=== PATIENT | female | born 1950 | race Caucasian/White ===

== ENCOUNTER → 2021-06-10 | Outpatient (CLI) | payer MEDICARE, OTHER, SELFPAY ==
--- NOTE | 2021-06-10 | IMM_PTH ---
PATIENT: LURDES CAMPBELL LOC: [facility] U#:[id number] AGE/SX: 70/F ROOM: RE06/10/[address]: Dr. Sara Jacobs MD : 1950 BED: DIS: 06/10/2021 SPEC #: [id number] RECD: 06/12/21 11:01 STATUS: BRITTNEY REQ #: [id number] ROMEO: 06/10/21 00:[address]: Sara Jacobs DEPT: IMMUNOHISTOCHEMISTRY RECD BY: Yudith Jacob ENTERED: 06/12/21 11:03 SP TYPE: IMMUNO OTHR DR: Dr. Lux Garcia MD Tissues: A - Left breast, NOS B - Left breast, NOS Procedures: CALPONIN-1 (add) CK5-6 (add) CK8 (add) PIERRE-2 (add) E-CAD (add) HER2 JERROD (add) KI-67 (add) MAMM (add) P53 (add) MS (add) Pankeratin (initial) GATA3 (add) P40 (add) ER (initial) PHYSICIAN & INSTITUTION [address] [address] SPECIMEN INFORMATION: Tissue Source: A ? Left breast mass 9 o?clock, B - Left breast mass 9 o?clock Clinical Info: Left breast mass Specimen Number: [id number] A & B CPT code: 03964 x2, 06374 x9, 72957 x3 METHODOLOGY: Deparaffinized sections of prefer/formalin-fixed tissue or PAP/DQ stained slides are incubated with monoclonal/polyclonal antibodies/oligonucleotide probes. Localization is made via biotin free immunoperoxidase method. Appropriate controls are performed and reacted as expected. Results on target cell population are indicated in the following table: RESULTS: ANTIBODY / CLONE RESULT Block A P53 (DO-7) positive, 2%, dim Ki-67 (30-9) positive, 15% CK8 (20jiuqN23) positive CK5-6 (D5 & 1684) negative Calponin-1 (JQ140Q) negative P40 (BC28) negative E-Cad (ECH-6) positive PIERRE-2 (SP21) positive MORPHOMETRIC ANALYSIS ER (clone 6F11) >95%, strong MS (clone 16/1E2) 90%, strong Her-2Neu (clone CB11) negative Block B AE1-3 (AE1/AE3/PCK26) positive GATA3 (L50-823) positive Mammaglobin (31A5) positive The prognostic test for HER2 is performed on formalin-fixed paraffin embedded tissue. A 3+ (positive) staining pattern is defined as intense, homogeneous, complete, circumferential membranous staining in >10% of contiguous tumor cells. A similar weak (2+) staining pattern is interpreted as equivocal. KEL follow-up testing is recommended for all equivocal cases. Positivity/negativity for ER/MS is reported if > or < 1% of the tumor cells are immuno- reactive, respectively. The ASCO/CAP criteria is used for scoring. Reference: Journal of Clinical Oncology, 2013; 31:4087-0630 & 2010; 16:7747-1896. Duration of fixation: 28.5 Hrs; Sample Adequate: Yes. These assays have not been validated on decalcified tissues. Results should be interpreted with caution given the likelihood of false negativity on decalcified specimens. These tests were developed and their performance characteristics determined by [facility]. They may not have been cleared or approved by the U.S. Food and Drug Administration. The FDA has determined that such clearance or approval is not necessary. The above immunohistochemical/dualISH markers are ordered and reviewed by the Pathologist. INTERPRETATION: A. Left breast mass 9 o?clock, biopsy: Invasive ductal carcinoma, nuclear grade 2. Positive for estrogen receptors (favorable prognostic indicator). Positive for progesterone receptors (favorable prognostic indicator). Negative for overexpression of EXN1fbw. B. Left breast mass 9 o?clock, biopsy: Invasive ductal carcinoma, nuclear grade 2. AM:binh 06/13/2021
--- NOTE | 2021-06-10 | BRBX_PTH ---
PATIENT: LURDES CAMPBELL [facility] U#:[id number] AGE/SX: 70/F ROOM: RE06/10/[address]: Dr. Sara Jacobs MD : 1950 BED: DIS: 06/10/2021 SPEC #: [id number] RECD: 06/10/21 16:06 STATUS: BRITTNEY REEmmy #: [id number] ROMEO: 06/10/21 00:[address]: Sara Jacobs DEPT: SURGICAL PATHOLOGY RECD BY: Marion Zavala ENTERED: 06/11/21 08:33 SP TYPE: BREAST BX OTHR DR: Dr. Lux Garcia MD Tissues: A - Left breast, NOS B - Left breast, NOS Procedures: Surgery Specimen Level IV HEADER OPERATION: Left breast biopsy PRE-OP DIAGNOSIS: Left breast mass TISSUE SUBMITTED: A ? Left breast mass 9 o?clock, 3 cm from nipple, B - Left breast mass 9 o?clock, 2.5 cm from nipple MICROSCOPIC DIAGNOSIS A. Left breast mass at 9 o?clock, 3 cm from nipple, core biopsy: Invasive ductal carcinoma with the following characteristics: Maximal length ? 5.2 millimeters Nuclear grade ? 2/3 See comment. B. Left breast mass at 9 o?clock, 2.5 cm from nipple, core biopsy: Invasive ductal carcinoma with the following characteristics: Maximal length ? 5 millimeters Nuclear grade ? 2/3 See comment. AM:binh 06/12/2021 COMMENT A & B. Immunohistochemistry ([id number]) supports the above diagnosis. MICROSCOPIC DESCRIPTION Slides are reviewed. GROSS DESCRIPTION A - Received in fixative is one container labeled with the patient's name and designated left breast mass 9 o'clock. The specimen consists of three cores of zendejas tissue. Each core has an average length of 1 cm and maximal diameter of 0.2 cm. The specimen is totally submitted in one cassette. B - Received in fixative is one container labeled with the patient's name and designated left breast mass 9 o'clock. The specimen consists of multiple irregular fragments of yellow-zendejas soft tissue that in aggregate measure 1.5 x 0.2 x 0.1 cm. The specimen is totally submitted in one cassette. / AM:binh 06/11/21 TC:0 CPT: 72946 x2
== END | disposition home or self-care (01) ==
LOC: LABSPEC 16:18
PROVIDERS: PCP Family Medicine; Referring Provider Surgery; Visit Provider Surgery
DX: C50.812 Malignant neoplasm of overlapping sites of left female breast (principal)
CPT/HCPCS: 88305; 88341; 88342

== ENCOUNTER 2021-06-26 10:17 | Outpatient (CLI) | payer MEDICARE, OTHER, SELFPAY ==
--- NOTE | 2021-06-26 10:20 | MRI_ITS ---
STUDY: BILATERAL BREAST MR WITHOUT AND WITH CONTRAST REASON FOR EXAM: Female, 70 years old. Newly diagnosed left breast cancer. TECHNIQUE: Multi-sequence multi-echo imaging of both breasts was performed with a dedicated breast coil. T1-weighted and T2-weighted images were performed before the administration of contrast. T1-weighted images were also performed after the administration of 15 mL of Dotarem contrast without complications. COMPARISON: Left breast ultrasound-guided images dated 06/10/2021, left breast ultrasound dated 05/31/2021, bilateral screening mammogram and left breast diagnostic images dated 05/31/2021. FINDINGS: RIGHT BREAST: The breast tissue is fatty with minimal background enhancement. There are no abnormal enhancing masses or areas of non-mass enhancement in the right breast. LEFT BREAST: The breast tissue is fatty with minimal background enhancement. At the 9 o''clock position of the left breast corresponding to the mammographic and ultrasonographic findings there is an irregular enhancing mass measuring 17 mm x 6 mm x 8 mm. Multiple small lymph nodes in both axillae with no abnormal lymph nodes. There is no abnormality in the visualized regions of the chest or liver. MRI/Breast Bilateral W/O and W IMPRESSION: 17 mm x 6 mm x 8 mm irregular enhancing mass at the 9 o''clock position of the left breast corresponding to the mammographic and ultrasonographic findings. No other abnormality. CATEGORY: BIRADS Category 6: Known Biopsy-Proven Malignancy - Appropriate Action Should Be Taken. A letter regarding these results will be sent to the patient by the facility within 30 days. Electronically Signed: Darnell Lane MD at 12:24 EST , Service support ,
[2021-06-26 10:46] LABS: CREATININE FINGERSTICK 0.7 mg/dL (0.55-1.02); EGFR FINGERSTICK > 60.0000 mL/min (>60)
== END 2021-06-26 23:59 | disposition short-term general hospital (02) ==
LOC: MRI 10:20
PROVIDERS: PCP Family Medicine; Referring Provider Surgery; Visit Provider Surgery
DX: C50.912 Malignant neoplasm of unspecified site of left female breast (principal)
CPT/HCPCS: 77049; C8908

== ENCOUNTER 2021-07-04 07:45 | Day surgery (SDC) | payer MEDICARE, OTHER, SELFPAY ==
--- NOTE | 2021-07-04 | IMM_PTH ---
PATIENT: LURDES CAMPBELL LOC: [facility] [place] U#:[id number] AGE/SX: 70/F ROOM: RE07/04/[address]: Dr. Sara Jacobs MD : 1950 BED: DIS: 07/04/2021 SPEC #: [id number] RECD: 07/09/21 12:52 STATUS: BRITTNEY REQ #: [id number] ROMEO: 07/04/21 00:[address]: Sara Jacobs DEPT: IMMUNOHISTOCHEMISTRY RECD BY: Yudith Jacob ENTERED: 07/09/21 12:53 SP TYPE: IMMUNO OTHR DR: Dr. Lux Garcia MD Tissues: A - Axillary lymph node, NOS Procedures: CK7 (add) Pankeratin (initial) Pankeratin (add) PHYSICIAN & INSTITUTION [place] [address] SPECIMEN INFORMATION: Tissue Source: A ? Axillary sentinel lymph nodes left breast Clinical Info: Left breast invasive ductal carcinoma Specimen Number: [id number] A1 & A2 CPT code: 25762, 16575 x3 METHODOLOGY: Deparaffinized sections of prefer/formalin-fixed tissue or PAP/DQ stained slides are incubated with monoclonal/polyclonal antibodies/oligonucleotide probes. Localization is made via biotin free immunoperoxidase method. Appropriate controls are performed and reacted as expected. Results on target cell population are indicated in the following table: RESULTS: ANTIBODY / CLONE RESULT Block A1 AE1-3 (AE1/AE3/PCK26) negative CK7 (OV-TL12/30) negative Block A2 AE1-3 (AE1/AE3/PCK26) negative CK7 (OV-TL12/30) negative These tests were developed and their performance characteristics determined by [facility]. They may not have been cleared or approved by the U.S. Food and Drug Administration. The FDA has determined that such clearance or approval is not necessary. The above immunohistochemical/dualISH markers are ordered and reviewed by the Pathologist. INTERPRETATION: A. Axillary sentinel lymph nodes left breast, biopsy: Two out of two lymph nodes, negative for metastatic carcinoma. IZAIAH:binh 07/10/2021
--- NOTE | 2021-07-04 | AXNB_PTH ---
PATIENT: LURDES CAMPBELL [place] [facility] [place][id number] AGE/SX: 70/F ROOM: RE07/04/[address]: Dr. Sara Jacobs MD : 1950 BED: DIS: 07/04/2021 SPEC #: [id number] RECD: 07/04/21 12:29 STATUS: BRITTNEY REEmmy #: [id number] ROMEO: 07/04/21 00:[address]: Sara Jacobs DEPT: SURGICAL PATHOLOGY RECD BY: Yudith Jacob ENTERED: 07/04/21 12:49 SP TYPE: AX NODE BX OTHR DR: Dr. Lux Garcia MD Tissues: A - Axillary lymph node, NOS B - Left breast, NOS Procedures: Frozen Section (charge) Frozen Section Add'l ([facility]) Surgery Specimen Level V HEADER OPERATION: Left breast ultrasound-guided wire localized lumpectomy, sentinel lymph node biopsy PRE-OP DIAGNOSIS: Left invasive ductal breast carcinoma TISSUE SUBMITTED: A ? Adams lymph node left breast, FS at 1224, B ? Left lumpectomy, long suture ? lateral, short suture - superior FROZEN SECTION DIAGNOSIS A. Left sentinel lymph nodes, biopsy: Two out of two lymph nodes, negative for metastatic carcinoma. :binh 07/04/2021 MICROSCOPIC DIAGNOSIS A. Left axillary sentinel lymph nodes, biopsy: Two out of two lymph nodes, negative for metastatic carcinoma. See comment. B. Left breast, wire-localized lumpectomy: Invasive ductal carcinoma. Ductal carcinoma in situ. See cancer summary in the comment section. IZAIAH:binh 07/09/2021 COMMENT A. The lymph nodes are negative for metastatic carcinoma on multiple H & E levels and immunohisto-chemical stains for cytokeratins ([id number]). B. BREAST CANCER SUMMARY Procedure - excision (lumpectomy) with needle localization Specimen laterality ? left Invasive tumor: Tumor site ? left breast 9 o?clock, 3 cm from nipple and left breast 9 o?clock, 2.5 cm from nipple Tumor size ? 0.9 x 0.5 x 0.5 cm Histologic type ? invasive ductal carcinoma, not otherwise specified Histologic grade (Broadview grade): Glandular/tubular differentiation score - 3 Nuclear pleomorphism score - 3 Mitotic count score - 2 Overall grade ? grade 3 (score of 8) Tumor focality ? single focus of invasive carcinoma (bilobated) Ductal carcinoma in situ ? present Negative for extensive intraductal component (EIC). Ductal carcinoma in situ comprise about 20% of total volume and present adjacent and away from the invasive tumor. Number of blocks with DCIS ? 3 Number of blocks examined ? 12 Architectural pattern ? comedo, cribriform and solid Nuclear grade ? nuclear grade 3 (high) Necrosis ? present, central (expansive ?comedo? necrosis) Lobular carcinoma in situ ? not identified Tumor extension: Skin ? not present Nipple ? not applicable Skeletal muscle ? not present Margins - Invasive carcinoma and ductal carcinoma in situ is 0.2 cm away from the closest inferior margin. Regional lymph nodes: Total number of lymph nodes examined ? 2 Number of sentinel lymph nodes examined - 2 Number of lymph nodes with macrometastases, micrometastases or isolated tumor cells - 0 Treatment effect ? no known presurgical therapy. Lymphvascular invasion ? not identified Dermal lymphvascular invasion ? not applicable Distant metastasis - not applicable Additional Pathologic Findings ? fibrocystic changes and mild intraductal hyperplasia without atypia. - Changes consistent with previous biopsy site. Ancillary Studies: Previously performed on same tumor ([id number] / [id number]) ER: positive (>95%, strong) OH: positive (90%, strong) Ypg6vut: negative Microcalcifications ? present in invasive carcinoma. Clinical History - Please make reference to previous specimen ([id number]) left breast mass at 9 o?clock, 3 cm from nipple, core biopsy with diagnosis of ?invasive ductal carcinoma? and left breast mass at 9 o?clock, 2.5 cm from nipple, core biopsy with diagnosis of ?invasive ductal carcinoma.? PATHOLOGIC STAGE: pT1b pN0(sn) pMx The above summary is in compliance with [employer] [place] (CAP) Cancer Protocols Checklist and [place] Joint Committee on Cancer (AJCC), Staging Manual, 8th Ed. Case has been reviewed in consultation with Dr. Hernandez who concurs with the above diagnosis. IDC:AM MICROSCOPIC DESCRIPTION Slides are reviewed. GROSS DESCRIPTION A - Received fresh for frozen section diagnosis labeled with the patient's name is a specimen designated sentinel lymph node left breast. The specimen consists of two pieces of zendejas-yellow fibroadipose tissue containing nodule measuring 2.5 x 1.5 x 1 cm and 1 x 1 x 0.4 cm. Two nodules measuring 0.8 and 1.5 cm in greatest dimension are identified. The entire specimen is submitted for frozen section diagnosis in two cassettes with each cassette containing one nodule. B - Received fresh for intraoperative consultation labeled with the patient's name is a specimen designated left breast lumpectomy. The specimen consists of a piece of fibroadipose tissue with needle localization measuring 4.5 x 3.5 x 2.5 cm. The specimen is oriented as follows: long suture - lateral, short suture - superior. The specimen is inked as follows: anterior - yellow, posterior - black, superior - blue, inferior - green, medial - red and lateral - orange. Serial sections reveal a zendejas, indurated mass measuring 0.9 x 0.5 x 0.5 cm. This mass is 0.5 cm away from the closest inferior margin. This information is conveyed to the surgeon intraoperatively. Sections of the rest of the specimen reveal zendejas-yellow adipose cut surfaces mixed with scant fibrous areas. The entire specimen is submitted in 12 cassettes as follows: 1 - perpendicular medial and lateral margins, 2 - perpendicular superior, inferior and posterior margin, 3 & 4 - entire tumor with closest anterior margin, 5 & 6 - payable representative sections adjacent to the tumor, 7-12 - rest of the specimen. Sections are submitted after additional fixation. / IZAIAH:binh 07/05/2021 TC:0 CPT: 92000 x2, 47778, 77395, 76113 ADDENDUM ADDENDUM ADDENDUM ADDENDUM ADDENDUM ADDENDUM ADDENDUM ADDENDUM 10/08/2021 15:22 ADDENDUM 10/08/2021 15:22 ADDENDUM 10/08/2021 15:22 ADDENDUM 10/08/2021 15:22 ADDENDUM 10/08/2021 15:22 An order for Oncotype testing was received from Dr. Montes. This necessitated case review, block and slide selection by pathologist at [facility]. Breast Cancer Recurrence Score = 18 Results of the complete Oncotype testing ([employer] report) are viewable in EMR under: Reports - Pathology - Lab Pathology Report, Scanned.
[2021-07-04 08:20] VITALS: BP 153/85; PULSE 80; RESP 16; TEMP 36.4; O2SAT 98; BMI 33.8
--- NOTE | 2021-07-04 08:30 | NM_ITS ---
PROCEDURE: NUCLEAR MEDICINE Injection [place] Node - LEFT breast(s). REASON FOR EXAM: Female, 70 years old. Left breast cancer. TECHNIQUE: [place] node localization using radionuclide methods of the LEFT breast(s) was performed following subcutaneous administration of 1.1 mCi of of sulfur colloid Tc-99m. FINDINGS: 1.1 mCi of technetium labeled sulfur colloid was injected subcutaneously in 4 equal aliquots in the left periareolar region. NM/Lymph Node Injection Only IMPRESSION: Subcutaneous injection of 1.1 mCi of technetium labeled sulfur colloid in 4 equal clots in the left periareolar region. Electronically Signed: Paulo Anderson MD at 8:41 EST , Service support ,
--- NOTE | 2021-07-04 08:33 | PCM.HP.BLA ---
History and Physical Date of Admission: 07/04/21 Date of Service: 06/18/21 MR#:[id number]:[id number]: LURDES CAMPBELLRep #:[id number] Provider:Chevy Singh/Sex: 70/F [facility] Reasons: Breast Cancer Chief Complaint: birads 5 left breast Allergies Penicillins Allergy (Verified 06/10/21 15:43) unknown [facility] Medical History (Updated 06/18/21 @ 10:[address] Sara Jacobs MD) Arthritis Hypothyroidism Invasive ductal carcinoma of left breast Rosacea Surgical History (Updated 06/10/21 @ 15:42 by Marine Thursday) H/O tubal ligation History of colonoscopy History of knee surgery History of tonsillectomy Hx of appendectomy S/P cataract surgery S/P cholecystectomy S/P hysterectomy Family History (Updated 06/10/21 @ 15:39 by Marine Thursday) Mother Arthritis Breast cancer Colon cancer Cancer non-Hodgkin's lymphoma Hypertension High cholesterol Thyroid disorder Father Cancer lung CA, skin CA-melanoma Heart disease Grandmother Asthma Social History (Updated 06/10/21 @ 15:41 by Marine Thursday) Smoking Status: Never smoker alcohol intake: current details: a glass on very special occasions substance use type: does not use HPI HPI HPI: LURDES CAMPBELL, is a 70 F who presents to the office today for discussion of left breast biopsy pathology along with her . Pathology did show invasive ductal carcinoma left breast and 9:00 3 cm from the nipple and at 9:00 2.5 cm from nipple. Grade 2/3?ER/NE positive HER-2 negative. Patient's initial ultrasound did show a BI-RADS 5 at the 3 o'clock position with a small area at the 2.5 cm position. There is a little bit of discrepancy as both areas had 5 mm tissue however the lesion at 2.5 cm was not as suspicious as the one at 3 cm and it also was only about 3 mm in size. Patient is scheduled for breast MRI on 06/26 due to this. Exam Const General: cooperative, healthy appearing, comfortable and no acute distress Neck Neck: normal visual inspection Chest Other: Left breast biopsy site healing well ecchymosis resolving, lesion still seen well with ultrasound Resp Effort & Inspection: normal respiratory effort Cardio Rate: regular rate GI Inspection: non-distended Palpation: soft Skin General: no rashes or lesions noted Neuro General: patient oriented x3 Psych Affect: normal affect COVID (Procedure Consent) Procedure Criteria Procedure Criteria: Yes Elective The surgeon/proceduralist and patient have discussed in detail the risk of exposure to and/or potential harm posed by the COVID-19 virus with having a surgery/procedure at this time versus the risk of delaying the surgery/procedure. It is not possible to know either the risk of delaying the surgery or procedure or chance of getting an infection with perfect accuracy, but a joint decision was made between the patient and the surgeon/proceduralist to proceed at this time with the scheduled surgery/procedure as indicated on the consent form. Assessment and Plan Assessment and Plan (1) Invasive ductal carcinoma of left breast: Status: Acute Plan: Patient scheduled for an MRI in 06/26?these results are also factor into options for surgery, which patient and are aware. I have given the patient options for initial surgical treatment. Options are the following: lumpectomy followed by radiation therapy vs. mastectomy vs. mastectomy followed by immediate reconstruction. I have described the procedures to the patient. I have described the advantages and disadvantages of the options, but I have told the patient that among the options, the survival rate for breast cancer is the same. I have told the patient that with all the surgeries that a sentinel lymph node biopsy is required. I have described the procedure of sentinel lymph node biopsy to the patient. I have told the patient that if the biopsy is positive for metastatic disease, then a full axillary lymph node dissection is required. I have told the patient that adjuvant chemotherapy will be required should the lymph nodes reveal metastatic disease. Also, a full lymph node dissection will increase the risk for lymphedema, especially if there are 4 or more lymph nodes positive for metastatic disease and radiation to the axilla is also required. I have told the patient the risks of surgery, including but not limited to: infection, bleeding, scar tissue, seroma and persistent seroma, lymph leak, injury to any blood vessels, injury to any nerves (particularly the long thoracic, the thoracodorsal, and the second intercostal brachial and the resultant sequelae), lymphedema, cosmetic deformity, dysesthesias, wound infections, further surgery (especially if margins are not clear), complications of anesthesia, etc. the patient understands. The patient will think about the options and discuss it further with the family. Patient was on appointment with Dr. Downey radiation oncology as well. We will be in touch with the patient after her appointment with Dr. Downey as well as the MRI. I have answered all the patient?s questions at this point to her satisfaction and she has no further questions. Greater than 50% of direct patient contact was spent in counseling or coordination of care. I spent 25 minutes counseling the patient about breast cancer treatment options and coordinating care. Addendum: Patient was agreeable to a left lumpectomy sentinel lymph node biopsy possible axillary lymph node dissection. Sara Jacobs M.D. Pager: [phone] [facility] [address] [place] [address], [address] [place] [id number] Office: [phone] Coding Level of Care Code Off vis,est,level 4 Diagnoses Invasive ductal carcinoma of left breast C50.912 06/18/21 1034<Electronically signed by Sara Jacobs MD>Date Sara Jacobs MD
[2021-07-04] MEDS: Lactated Ringers 1,000 ML 15 ML IV ×2 (08:43→13:30)
[2021-07-04] MEDS: Isosulfan Blue 1% 5 ML Vial (11:30)
--- NOTE | 2021-07-04 13:00 | OP.PCM_ITS ---
Report of Operation Date of Procedure: 07/04/21 Pre-Operative Diagnosis: Left breast invasive ductal carcinoma Post-Operative Diagnosis: Same Surgery/Procedure Performed:: Left breast ultrasound-guided wire localization lumpectomy, sentinel lymph node biopsy, injection of nuclear tracer and Lymphazurin Description of Surgical Findings:: 2 sentinel nodes negative Surgeon: Sara Jacobs family services manager: Deana Langley Type of Anesthesia: General/Regional Anesthesiologist: Francesco Wolfe Special Medications: Clindamycin 900 mg IV x1 Specimen's removed: 1. Left axillary [place] lymph nodes x2, 2. Left lumpectomy Estimated Blood Loss (mL): 10 cc Description of Procedure: In radiology the breast tissue was injected with TC-9 9 sulfur colloid. 90 minutes later the patient was taken to the operating room and general anesthesia was induced. 5 cc of Lymphazurin 1% blue dye was injected in the 4 quadrants periareolar along with 10 cc of normal saline. This was massaged gently for 5 minutes. The left breast and axilla were prepped and draped in usual sterile fashion. A timeout was completed verifying correct patient, procedure, site, positioning, special equipment prior to beginning procedure. Handheld gamma probe was used to identify the location of the hottest spot in the axilla. Prior to the incision, the counts were inconsistent between 0 and 8 even without moving the probe. The incision was made and a blue node was identified. The probe was placed in contact with the node in the 10 count was 16. The bed of the node measured 0 counts. Another additional blue node was dissected and sent to pathology. No additional blue or hot nodes were detected. Frozen SNL were negative. Ultrasound was used to place the Kopan's needle just posterior to the breast lesion. A radial incision was planned in such a way as to minimize the amount of dissection to reach the mass. Flaps were raised in the location of the wire confirmed. The wire was delivered into the wound. 2 silk [id number] stay suture was placed around the wire and used for traction. Dissection was then taken down circumferentially, taking care to include the entire localization needle and wide margin of grossly normal tissue. The specimen and entire localizing wire were removed. The cavity was marked with 3 medium clips. The specimen was oriented and sent to radiology. Xray confirmed that the entire target lesion had been resected. The wound was irrigated with sterile water. Hemostasis was checked. The breast and axillary wounds were closed with interrupted sutures of 3-0 Vicryl and subcuticular sut ures of 4-0 Monocryl. No attempt was made to close the space. A dressing of fluff gauze and supportive bra placed. The patient tolerated procedure well was taken to the postanesthesia care in stable condition. Complications None
--- NOTE | 2021-07-04 13:04 | EX.PCM.DISCH ---
Discharge Instructions Diet Discharge Diet: No restrictions Activity Discharge Activity: May Not Drive (for 2-3 days or while taking narcotic pain meds.) May shower in (days): 1 Lifting Restrictions: 10 pounds for 1 week. Dressing / Incision Call your doctor if your incision/area has: Continuous Slow Oozing, Sudden Increased Bleeding, Increased Pain/ Swelling and Increased Redness Call your doctor if you observe: Fever of 101 or Higher Suture Line Care: Avoid Pulling/Pushing and Avoid Pinching/Bending Remove Dressing in: 1 day Additional Dressing/Incision Instructions:: Remove bulky dressing tomorrow. May leave any op-site dressing for 3-4 days. Dermabond (glue) was used at the axillary incision this may start to peel off in about 5 days. Okay to remove Steri-Strips from the breast incision in 7 to 10 days with annual follow-up. Follow Up Care Please Follow Up With: Sara Jacobs MD When: Please call [phone] for an appointment to be seen in 2 week. Test Results: Test results from this visit will be discussed in further detail at your follow-up appointment, if applicable. Discharge Plan Admission Attending Provider: Sara Jacobs Primary Care Provider: Lux Garcia Discharge Orders/Prescriptions Prescriptions: New hydrocodone-acetaminophen 5-325 mg tablet 1 tab PO Q6H PRN (Reason: pain) 3 Days Qty: 7 RF: 0 Continued levothyroxine 50 mcg capsule 50 mcg PO DAILY RF: 0 Referrals / Follow Up: Lux Garcia MD [Primary Care Provider] - Disposition Disposition (needs filled in before D/C Order can be placed): Home, Self Care
--- NOTE | 2021-07-04 13:05 | BI_ITS ---
SURGICAL BREAST SPECIMEN RADIOGRAPH CLINICAL: Document presence of tissue clip marker in biopsy specimen. FINDINGS: Specimen shows presence of tissue clip marker. Electronically Signed: Paulo Anderson MD at 13:42 EST , Service support , BI/Breast Biopsy Specimen
[2021-07-04 13:45] VITALS: BP 138/68; BP 153/85; PULSE 68; RESP 16; TEMP 36.2; O2SAT 98
[2021-07-04 14:00] VITALS: BP 132/72; BP 153/85; PULSE 67; RESP 16; O2SAT 93
[2021-07-04 14:15] VITALS: BP 134/79; BP 153/85; PULSE 69; RESP 16; TEMP 36; O2SAT 94
[2021-07-04 15:12] VITALS: BP 144/68; BP 153/85; PULSE 70; RESP 18; TEMP 36.6; O2SAT 98
== END 2021-07-04 23:59 | disposition home or self-care (01) ==
LOC: SDC 07:45 → AC 07:46
PROVIDERS: PCP Family Medicine; Referring Provider Family Medicine; Visit Provider Surgery
PROC: 0HBV0ZZ Excision of Bilateral Breast, Open Approach (ICD-10-PCS; CPT 19302; principal; 2021-07-04 10:45)
DX: C50.912 Malignant neoplasm of unspecified site of left female breast (principal); R59.0 Localized enlarged lymph nodes
CPT/HCPCS: 19301; 38525; 00400; 38792; 76098; 88305; 88307; 88331; 88332; 88341; 88342; A9541; J7120; J2405; Q9968

== ENCOUNTER 2021-07-23 08:41 | Outpatient (CLI) | payer MEDICARE, OTHER, SELFPAY ==
--- NOTE | 2021-07-23 08:46 | BD_ITS ---
STUDY: DUAL ENERGY X-RAY ABSORPTIOMETRY / DXA REASON FOR EXAM: Female, 70 years old. POST MENOPAUSE TECHNIQUE: Bone Mineral Density (BMD) measurements of lumbar spine and bilateral hips were obtained. COMPARISON: None. FINDINGS: Lumbar Spine (L1-L4): g/cm2 (1.247) / T-score (1.8) / Z-score (4.1) Findings are suggestive of normal bone density with a low fracture risk. Left Femur Total: g/cm2 (0.992) / T-score (0.4) / Z-score (2.1) Left Femoral Neck: g/cm2 (0.930) / T-score (0.7) / Z-score (2.7) Right Femur Total: g/cm2 (0.997) / T-score (0.5) / Z-score (2.1) Right Femoral Neck: g/cm2 (0.865) / T-score (0.1) / Z-score (2.1) BD/Dexa Bone Density Study IMPRESSION: The patient is considered normal as outlined below according to World Lj Organization (WHO) criteria with a low fracture risk. Reference Information: The T-score is the number of standard deviations above or below the standard which is normal for young adults at their peak bone mineral density. The World Health Organization (WHO) interprets the T-scores as follows: Above -1 Normal bone density Between -1 and -2.5 Osteopenia Equal to / or below -2.5 Osteoporosis As a practical clinical guideline, osteopenia may be graded as follows: Mild -1 through -1.5 Moderate -1.6 through -2.0 Severe -2.1 through -2.4 The Z-score is the number of standard deviations above or below age-matched controls. A Z-score of less than -1.5 would be considered abnormal. References: 1. NIH Osteoporosis and Related Bone Diseases www osteo.org 2. International Society for Clinical Densitometry www iscd.org 3. National Osteoporosis Foundation www nof.org Electronically Signed: Paulo Anderson MD at 15:39 EST ,
== END 2021-07-23 23:59 | disposition short-term general hospital (02) ==
LOC: OPBD 08:42
PROVIDERS: PCP Family Medicine; Referring Provider Internal Medicine Hematology & Oncology; Visit Provider Internal Medicine Hematology & Oncology
DX: Z13.820 Encounter for screening for osteoporosis (principal); Z78.0 Asymptomatic menopausal state
CPT/HCPCS: 77080

== ENCOUNTER → 2022-06-02 | Outpatient (CLI) | payer MEDICARE, OTHER, SELFPAY ==
--- NOTE | 2022-06-02 14:24 | BI_ITS ---
MAMMOGRAPHY - BILATERAL DIAGNOSTIC REASON FOR EXAM: Female, 71 years old. Prior left lumpectomy with radiation treatment. PERTINENT HISTORY: Personal history of breast cancer. Mother with breast cancer. TECHNIQUE: Digital bilateral breast cuong (3D mammographic acquisition) in the CC and MLO projections. 2-D mediolateral oblique (MLO) and craniocaudad (CC) views of both breasts were obtained. CAD: Full Field Digital Mammography with Computer Added Detection was performed. COMPARISON: Comparison is made with prior examination dated 05/31/2021. FINDINGS: Breast Composition: There are scattered areas of fibroglandular density. There are no dominant masses or suspicious calcifications. Since prior study, the patient underwent resection of a small nodular density in the inferior medial aspect of the left breast. Postoperative scarring is seen at the operative site. Surgical clips are also seen in the left axillary region. No other significant abnormalities are identified. BI/DIAG MAMM W/CAD, BILAT IMPRESSION: Status post resection of the nodular density with calcifications in the inferior medial aspect of the left breast. Postoperative scarring. One year follow-up recommended. (A) ASSESSMENT CATEGORY: BIRADS Category 2: Benign. A letter regarding these results will be sent to the patient by the facility within 30 days. Approximately 10% of breast cancers are not detected by mammography. A normal mammogram should not delay biopsy of a clinically suspicious abnormality. Electronically Signed: Paulo Anderson MD at 15:18 EST ,
== END | disposition home or self-care (01) ==
LOC: OPBI 14:23
PROVIDERS: PCP Family Medicine; Referring Provider Student in an Organized Health Care Education/Training Program; Visit Provider Student in an Organized Health Care Education/Training Program
DX: L90.5 Scar conditions and fibrosis of skin (principal); Z85.3 Personal history of malignant neoplasm of breast; Z80.3 Family history of malignant neoplasm of breast
CPT/HCPCS: 77062; 77066; G0279

== ENCOUNTER → 2023-06-03 | Outpatient (CLI) | payer MEDICARE, OTHER, SELFPAY ==
--- NOTE | 2023-06-03 11:50 | BI_ITS ---
MAMMOGRAPHY - BILATERAL SCREENING REASON FOR EXAM: Female, 72 years old. Routine annual screening examination. PERTINENT HISTORY: Personal history of breast cancer. Prior lumpectomy and radiation. Mother with breast cancer. TECHNIQUE: Digital bilateral breast patricia (3D mammographic acquisition) in the CC and MLO projections. 2-D mediolateral oblique (MLO) and craniocaudad (CC) views of both breasts were obtained. CAD: Full Field Digital Mammography with Computer Added Detection was performed. COMPARISON: Comparison is made with prior study dated June 02, 2022. FINDINGS: Breast Composition: There are scattered areas of fibroglandular density. There are no dominant masses or suspicious calcifications. The patient is status post lumpectomy in the anterior central medial aspect of the left breast with resultant postoperative scarring. Surgical clips are seen at that site. Overlying skin thickening is seen. Surgical clips are seen in the left axilla. Fat containing left axillary lymph nodes. No other significant abnormalities are identified. There has been no significant change since the prior study. BI/SCRN MAMM (CAD)W/PATRICIA BILAT IMPRESSION: Stable bilateral screening mammogram. Yearly follow-up mammogram recommended. (A) ASSESSMENT CATEGORY: BIRADS Category 2: Benign. A letter regarding these results will be sent to the patient by the facility within 30 days. Approximately 10% of breast cancers are not detected by mammography. A normal mammogram should not delay biopsy of a clinically suspicious abnormality. [id number] Electronically Signed: Paulo Anderson MD at 13:25 EST ,
== END | disposition home or self-care (01) ==
LOC: OPBI 11:49
PROVIDERS: PCP Family Medicine; Referring Provider Student in an Organized Health Care Education/Training Program; Visit Provider Student in an Organized Health Care Education/Training Program
DX: Z12.31 Encounter for screening mammogram for malignant neoplasm of breast (principal); Z85.3 Personal history of malignant neoplasm of breast; Z80.3 Family history of malignant neoplasm of breast
CPT/HCPCS: 77063; 77067

== ENCOUNTER → 2024-06-06 | Outpatient (CLI) | payer MEDICARE, OTHER, SELFPAY ==
--- NOTE | 2024-06-06 10:14 | BI_ITS ---
MAMMOGRAPHY - BILATERAL SCREENING REASON FOR EXAM: Female, 73 years old. Routine annual screening examination. PERTINENT HISTORY: Personal history of breast cancer. Prior left lumpectomy. Mother with breast cancer. TECHNIQUE: Digital bilateral breast patricia (3D mammographic acquisition) in the CC and MLO projections. 2-D mediolateral oblique (MLO) and craniocaudad (CC) views of both breasts were obtained. CAD: Full Field Digital Mammography with Computer Added Detection was performed. COMPARISON: Comparison is made with prior study dated June 03, 2023 and June 02, 2022. FINDINGS: Breast Composition: There are scattered areas of fibroglandular density. There are no dominant masses or suspicious calcifications. Once again, the patient is status post lumpectomy in the anterior central medial aspect of the left breast with resultant postoperative changes. Surgical clips are subtle also seen in the left axilla. Fat-containing right axillary lymph nodes. No other significant abnormalities are identified. There has been no significant change since the prior study. BI/SCRN MAMM (CAD)W/PATRICIA BILAT IMPRESSION: Stable bilateral screening mammogram. Yearly follow-up mammogram recommended. (A) ASSESSMENT CATEGORY: BIRADS Category 2: Benign. A letter regarding these results will be sent to the patient by the facility within 30 days. Approximately 10% of breast cancers are not detected by mammography. A normal mammogram should not delay biopsy of a clinically suspicious abnormality. [id number] Electronically Signed: Paulo Anderson MD at 11:11 EST ,
== END | disposition home or self-care (01) ==
PROVIDERS: PCP Family Medicine; Referring Provider Student in an Organized Health Care Education/Training Program; Visit Provider Student in an Organized Health Care Education/Training Program
DX: Z12.31 Encounter for screening mammogram for malignant neoplasm of breast (principal)
CPT/HCPCS: 77063; 77067

== ENCOUNTER → 2024-12-28 | Outpatient (CLI) | payer MEDICARE, OTHER, SELFPAY ==
--- NOTE | 2024-12-28 14:38 | NEURO ---
NCS and/or EMG Patient Report Ordering Doctor: Jesús Durán DATE OF SERVICE: 12/28/24 Corin presents with complaints of numbness and tingling in the right hand. She also has pain in the anterior aspect of the neck radiating into the right shoulder and upper arm. Electrodiagnostic findings: Right median motor nerve demonstrates prolonged distal latency with normal amplitude and borderline reduced conduction velocity. Right ulnar motor response within normal limits, including conduction across the elbow. Normal right median and right ulnar F?waves. Prolonged right median sensory latency at the wrist. Needle EMG testing was performed the right upper limb. All muscles tested showed no evidence of denervation with normal motor unit action potentials. Electrodiagnostic impression: This is an abnormal study in the right upper limb 1. Electrodiagnostic findings suggestive of right-sided median mononeuropathy. This is consistent with a mild to moderate right carpal tunnel syndrome. 2. There is no electrodiagnostic evidence for ulnar neuropathy, including cubital tunnel syndrome. 3. There is no electrodiagnostic evidence for cervical radiculopathy or brachial plexopathy. Multi Select Codes Neurology Neurology Interp Codes: 82660-43 Musc test done w/n test comp (interp) and 80326-61 Nrv cndj tst 5-6 studies (interp)
== END | disposition home or self-care (01) ==
LOC: PSN 09:56
PROVIDERS: PCP Family Medicine; Referring Provider Student in an Organized Health Care Education/Training Program; Visit Provider Student in an Organized Health Care Education/Training Program
DX: R20.2 Paresthesia of skin (principal)
CPT/HCPCS: 95886; 95909

== ENCOUNTER → 2025-06-09 | Outpatient (CLI) | payer MEDICARE, OTHER, SELFPAY ==
--- NOTE | 2025-06-09 08:45 | BI_ITS ---
EXAM: SCRN MAMM (CAD)W/PATRICIA BILAT DATE: 06/09/2025 CLINICAL HISTORY: F, Age 74 y/o , H/O LEFT BREAST CANCER, ANNUAL SCREENING TECHNIQUE: Procedure Code: [id number] Modality: MG Procedure: SCRN MAMM (CAD)W/PATRICIA BILAT COMPARISON: Prior exam(s) dated 06/06/2024, 06/03/2023, 06/02/2022. FINDINGS: TISSUE DENSITY: There are scattered areas of fibroglandular density. Bilateral Breast Mammographic Findings: No significant masses, calcifications or other abnormalities are identified. BI/SCRN MAMM (CAD)W/PATRICIA BILAT IMPRESSION: There is no mammographic evidence of malignancy. OVERALL FINAL ASSESSMENT BI-RADS 1: NEGATIVE. RECOMMENDATION: Routine annual follow-up in 1 Year Additional Recommendation none A letter with findings and recommendations will be mailed to the patient. Reading Location: [id number]
== END | disposition home or self-care (01) ==
LOC: OPBI 08:10
PROVIDERS: PCP Family Medicine; Referring Provider Student in an Organized Health Care Education/Training Program; Visit Provider Student in an Organized Health Care Education/Training Program
DX: Z12.31 Encounter for screening mammogram for malignant neoplasm of breast (principal); Z85.3 Personal history of malignant neoplasm of breast
CPT/HCPCS: 77063; 77067